=== PATIENT | female | born 2000 | race Hispanic/Latino ===

== ENCOUNTER 2022-10-03 13:54 | Emergency (ER) | payer OTHER ==
[~2022-10-03] VITALS: Ht 149.9 cm; Wt 53.5 kg
[2022-10-03 13:56] VITALS: BP 104/63
== END 2022-10-03 18:03 | disposition left against medical advice (07) ==
LOC: EDH 13:54
DX: O20.9 Hemorrhage in early pregnancy, unspecified (principal); Z3A.01 Less than 8 weeks gestation of pregnancy; Z53.21 Procedure and treatment not carried out due to patient leaving prior to being seen by health care provider
CPT/HCPCS: 87635; 87804 ×2; C9803